=== PATIENT | female | born 2000 | race Two or more races ===

== ENCOUNTER 2022-01-07 15:15 | Emergency (ER) | payer MEDICAID ==
[~2022-01-07] VITALS: Ht 170.2 cm; Wt 97.5 kg
[2022-01-07 16:30] LABS: Urine Bacteria NONE SEEN /hpf (None Seen); Urine Blood 1+ /uL (Negative); Urine Budding Yeast FEW /hpf (None Seen); Urine Mucus FEW (None Seen); Urine Specific Gravity 1.022 (1.001-1.035); Urine WBC 2 /hpf (0 - 5)
[2022-01-07 17:32] VITALS: BP 144/86
[2022-01-07] MEDS: KETOROLAC TROMETH 60MG/2ML VIAL IM ONE (18:00)
[2022-01-07] MEDS: ONDANSETRON ODT 4 MG TAB PO ONE (18:00)
== END 2022-01-07 18:48 | disposition home or self-care (01) ==
LOC: ER 15:15
DX: G44.209 Tension-type headache, unspecified, not intractable (principal); Z32.02 Encounter for pregnancy test, result negative
CPT/HCPCS: 81001; 81025; 96372; 99283; J1885; Q0162